=== PATIENT | male | born 1985 | race African-American/Black ===

== ENCOUNTER 2017-04-13 22:30 | Emergency (ER) | payer SELFPAY ==
[~2017-04-13] VITALS: Ht 175.3 cm; Wt 95.3 kg
[2017-04-13] MEDS ORDERED: TETRACAINE HCL/PF 0.5% UD 2 ML BOTTLE ONE (22:42)
[2017-04-13] MEDS ORDERED: FLUORESCEIN SODIUM OPHTH 1 EA STRIP ONE (22:42)
[2017-04-13 22:54] VITALS: BP 138/90
[2017-04-13] MEDS ORDERED: TETRACAINE HCL/PF 0.5% UD 2 ML BOTTLE OP ONE (23:00)
[2017-04-13] MEDS ORDERED: FLUORESCEIN SODIUM OPHTH 1 EA STRIP OP ONE (23:00)
== END 2017-04-13 22:54 | disposition home or self-care (01) ==
LOC: ER 22:31
DX: S05.02XA Injury of conjunctiva and corneal abrasion without foreign body, left eye, initial encounter (principal); I10 Essential (primary) hypertension; F17.200 Nicotine dependence, unspecified, uncomplicated; X58.XXXA Exposure to other specified factors, initial encounter; Y93.89 Activity, other specified; Y92.89 Other specified places as the place of occurrence of the external cause; Y99.8 Other external cause status
CPT/HCPCS: 99283; A4606; Z7610